=== PATIENT | male | born 1945 | race Caucasian/White ===

== ENCOUNTER → 2022-03-11 | Outpatient (CLI) | payer MEDICARE, BC | END | disposition home or self-care (01) | LOC: RAH 10:42 | PROVIDERS: ATTEND Physician Assistant Medical | DX: M47.816 Spondylosis without myelopathy or radiculopathy, lumbar region (principal); M54.50 Low back pain, unspecified; M48.061 Spinal stenosis, lumbar region without neurogenic claudication | CPT/HCPCS: 72148 ==

== ENCOUNTER → 2022-05-06 | Outpatient (CLI) | payer MEDICARE, BC | END | disposition home or self-care (01) | LOC: RAH 13:23 | PROVIDERS: ATTEND Internal Medicine Cardiovascular Disease | DX: I51.7 Cardiomegaly (principal); R94.31 Abnormal electrocardiogram [ECG] [EKG] | CPT/HCPCS: 93306 ==

== ENCOUNTER → 2022-05-10 | Outpatient (CLI) | payer MEDICARE, BC ==
[~2022-05-10] MED LIST: REGADENOSON 0.4 MG/5 ML PF SYG IVP SCH
== END | disposition home or self-care (01) ==
LOC: SHCH 07:40
PROVIDERS: ATTEND Internal Medicine Cardiovascular Disease
DX: R94.31 Abnormal electrocardiogram [ECG] [EKG] (principal)
CPT/HCPCS: 78452; 96374; 93017; J2785; A9500 ×2

== ENCOUNTER 2022-05-21 14:00 | Observation (INO) | payer MEDICARE ==
[~2022-05-21] VITALS: Ht 170.2 cm; Wt 92.2 kg
[2022-05-21 10:01] LABS: BASOPHILS % (AUTO) 0.6 % (0.0-5.0); EOSINOPHILS % (AUTO) 6.5 % (0.0-8.0); HEMATOCRIT 48.2 % (42-54); LYMPHOCYTES % (AUTO) 19.1 % (21.0-51.0); MEAN CORPUSCULAR HEMOGLOBIN 28.8 pg (27.0-33.0); MEAN CORPUSCULAR HGB CONC 33.2 g/dL (32.0-36.0); MEAN CORPUSCULAR VOLUME 86.8 fL (79-99); MONOCYTES % (AUTO) 10.3 % (3.0-13.0); PLATELET COUNT (AUTO) 246 K/uL (130-400); RED BLOOD CELL COUNT(AUTO) 5.55 MIL/uL (4.50-6.20); RED CELL DISTRIBUTION WIDTH 13.3 % (11.0-15.5); WHITE BLOOD COUNT (AUTO) 6.3 K/uL (4.8-10.8)
[2022-05-21 10:15] LABS: CREATININE 1.7 mg/dL (0.5-1.5); POTASSIUM 4.3 mmol/L (3.5-5.1)
[2022-05-23 09:43] VITALS: BP 172/97
[2022-05-23] MEDS ORDERED: GLIM4TAB36 PO (11:19)
[2022-05-23] MEDS ORDERED: FENO145T26 PO (11:19)
[2022-05-23] MEDS ORDERED: ESOM20CA39 PO (11:19)
[2022-05-23] MEDS ORDERED: DUTA0.5C37 PO (11:19)
[2022-05-23] MEDS ORDERED: WARF-57 PO (11:19)
[2022-05-23] MEDS ORDERED: ASPI-449 PO (11:19)
[2022-05-23] MEDS ORDERED: WARF-67 PO (11:19)
[2022-05-23] MEDS ORDERED: ENOX120D SQ (11:19)
[2022-05-23] MEDS ORDERED: EMPA10TA PO (11:19)
[2022-05-23] MEDS ORDERED: METF-910 PO (11:19)
[2022-05-23] MEDS ORDERED: MELO-108 PO (11:19)
[2022-05-23] MEDS ORDERED: PHARMACY COMMUNICATION MISC SCH (11:30)
[2022-05-24] MEDS ORDERED: BUPIVACAINE/PF 0.5% 10ML VIAL ONE (05:01)
[2022-05-24] MEDS ORDERED: BUPIVACAINE/EPI/PF 0.5% 30ML VIAL IJ ONE (05:01)
[2022-05-24] MEDS ORDERED: CEFAZOLIN SODIUM 1 GM VIAL ONE (05:01)
[2022-05-24] MEDS ORDERED: MORPHINE PF 100MG/10ML AMP IV ONE (05:02)
[2022-05-24] MEDS ORDERED: THROMBIN-JMI 20000 UNIT KIT TP ONE (05:03)
[2022-05-24] MEDS ORDERED: CEFAZOLIN SODIUM 2 GM VIAL ONE (06:14)
[2022-05-24] MEDS ORDERED: 0.9%NACL 1000ML 1,000 ML IV ONE (06:15)
[2022-05-24 06:23] VITALS: BP 192/105
[2022-05-24 06:28] LABS: CREATININE 1.7 mg/dL (0.5-1.5); INR 1.15 (0.85-1.15); POTASSIUM 4.1 mmol/L (3.5-5.1); PROTHROMBIN TIME 12.4 SEC (9.6-11.6)
[2022-05-24 06:29] LABS: PARTIAL THROMBOPLASTIN TIME 35.8 SEC (26.3-35.5)
[2022-05-24] MEDS ORDERED: SUCCINYLCHOLINE CHLORIDE 20 MG/ML 10 ML VIAL ONE (07:29)
[2022-05-24] MEDS ORDERED: GLYCOPYRROLATE 1 MG/5 ML SYRINGE ONE (07:29)
[2022-05-24] MEDS ORDERED: PROPOFOL 10 MG/ML 20ML VIAL IV ONE (07:29)
[2022-05-24] MEDS ORDERED: LIDOCAINE PF 100MG/5ML (2%) SYRINGE 5ML ONE (07:29)
[2022-05-24] MEDS ORDERED: ROCURONIUM 10MG/1ML SYR 10 MG/ML ML ONE (07:29)
[2022-05-24] MEDS ORDERED: FENTANYL CITRATE PF 50 MCG/1 ML 2ML VIAL ONE (07:30)
[2022-05-24] MEDS ORDERED: CEFAZOLIN SODIUM 2 GM VIAL IVPB PRN (08:00)
[2022-05-27] VITALS (20 sets, daily range): BP systolic 115–163; BP diastolic 71–99
[2022-05-27] MEDS ORDERED: BUPIVACAINE/EPI/PF 0.5% 30ML VIAL IJ ONE (08:35)
[2022-05-27] MEDS ORDERED: CEFAZOLIN SODIUM 1 GM VIAL ONE ×2 (08:35→10:05)
[2022-05-27] MEDS ORDERED: THROMBIN-JMI 20000 UNIT KIT TP ONE (08:36)
[2022-05-27] MEDS ORDERED: MORPHINE PF 100MG/10ML AMP IV ONE (08:36)
[2022-05-27] MEDS ORDERED: LACTATED RINGERS 1000ML 1,000 ML IV ONE (10:05)
[2022-05-27] MEDS ORDERED: 0.9%NACL 1000ML 1,000 ML IV ONE (10:31)
[2022-05-27] MEDS ORDERED: PROPOFOL 10 MG/ML 20ML VIAL IV ONE ×2 (11:39→12:58)
[2022-05-27] MEDS ORDERED: ROCURONIUM 10MG/1ML SYR 10 MG/ML ML ONE (11:39)
[2022-05-27] MEDS ORDERED: MIDAZOLAM HCL 1 MG/ML 2ML VIAL ONE (11:39)
[2022-05-27] MEDS ORDERED: FENTANYL CITRATE PF 50 MCG/1 ML 2ML VIAL ONE ×2 (11:41→13:45)
[2022-05-27] MEDS ORDERED: DEXAMETHASONE SOD PHOSPHATE 10MG/ML 1ML VIAL ONE (12:03)
[2022-05-27] MEDS ORDERED: PHENYLEPHRINE HCL 10 MG/ML 1ML VIAL IV ONE (12:05)
[2022-05-27] MEDS ORDERED: GLYCOPYRROLATE 1 MG/5 ML SYRINGE ONE (12:48)
[2022-05-27] MEDS ORDERED: EPHEDRINE SULFATE 50 MG/ML AMPULE ONE (12:50)
[2022-05-27] MEDS ORDERED: ONDANSETRON 4MG INJ ONE (13:28)
[2022-05-27] MEDS ORDERED: NEOSTIGMINE 5MG/5ML SYR IV ONE (13:45)
[2022-05-27] MEDS: LACTATED RINGERS 1000ML 1,000 ML IV SCH (14:00)
[2022-05-27] MEDS: CEFAZOLIN SODIUM 2 GM VIAL IVPB SCH ×2 (14:00→22:01)
[2022-05-27] MEDS ORDERED: MORPHINE 2 MG SYG IVP PRN (14:00)
[2022-05-27] MEDS ORDERED: HYDROCODONE/ACETAMINOPHEN 5/325 MG TAB PO PRN (14:00)
[2022-05-27] MEDS ORDERED: 0.9%NACL 10ML VIAL IVP PRN (14:00)
[2022-05-27] MEDS ORDERED: PROMETHAZINE HCL 25 MG/ML 1ML AMPULE IM PRN (14:00)
[2022-05-27] MEDS: DEXAMETHASONE SOD PHOSPHATE 4 MG/ML 1ML VIAL IVP SCH ×2 (18:03→20:43)
[2022-05-27] MEDS: GLIMEPIRIDE 2 MG TABLET PO SCH (20:43)
[2022-05-27] MEDS ORDERED: EMPAGLIFLOZIN 10MG TABLET PO SCH (21:00)
[2022-05-27] MEDS ORDERED: MELOXICAM 7.5 MG TABLET PO SCH (21:00)
[2022-05-28] VITALS: BP 140/73
[2022-05-28] MEDS: DEXAMETHASONE SOD PHOSPHATE 4 MG/ML 1ML VIAL IVP SCH ×2 (02:06→09:59)
[2022-05-28] MEDS: LACTATED RINGERS 1000ML 1,000 ML IV SCH (03:20)
[2022-05-28 04:00] VITALS: BP 133/80
[2022-05-28] MEDS: CEFAZOLIN SODIUM 2 GM VIAL IVPB SCH (05:21)
[2022-05-28 08:00] VITALS: BP 130/90
[2022-05-28] MEDS ORDERED: FENOFIBRATE NANOCRYSTALLIZED 145 MG TAB PO SCH (09:00)
[2022-05-28] MEDS ORDERED: ENOXAPARIN SODIUM 120 MG/0.8ML SQ SCH (09:00)
[2022-05-28] MEDS ORDERED: PANTOPRAZOLE 40 MG TAB DR PO SCH (09:00)
[2022-05-28] MEDS ORDERED: ASPIRIN 81 MG EC TAB PO SCH (09:00)
[2022-05-28] MEDS: GLIMEPIRIDE 2 MG TABLET PO SCH (09:00)
[2022-05-28] MEDS ORDERED: METFORMIN HCL 500 MG TAB.SR.24H PO SCH (09:00)
[2022-05-28] MEDS ORDERED: DUTASTERIDE 0.5 MG PO SCH (09:00)
== END 2022-05-28 11:55 | disposition home or self-care (01) ==
LOC: EDSTATUS 14:00 → UNDOADMOB 05-24 05:34 → DAHIP 05-24 05:34 → 4BH 05-27 15:10
PROVIDERS: ADMIT Neurological Surgery; ATTEND Neurological Surgery
DX: M48.061 Spinal stenosis, lumbar region without neurogenic claudication (principal); Z20.822 Contact with and (suspected) exposure to COVID-19; E11.9 Type 2 diabetes mellitus without complications; E78.5 Hyperlipidemia, unspecified; D68.2 Hereditary deficiency of other clotting factors; Z90.49 Acquired absence of other specified parts of digestive tract; Z79.899 Other long term (current) drug therapy; Z98.890 Other specified postprocedural states
CPT/HCPCS: 80048 ×2; 85025; 87426; 36415 ×2; 85610; 85730; 82948 ×3; 63047; 63048; 96376 ×2; 96365; 96375; 72020; A6260; A4663 ×2; J0690 ×5; J7030 ×2; J2274 ×2; J3490 ×4; A4215; A4223; A4222; A4221; A4600; A4510; J1100 ×6; G0378 ×21; J7120 ×3; A4344; J3010 ×2; J2710; J2250; J2704 ×2; J2405; J2370; A4649 ×3; J1650; J0330; J2001

== ENCOUNTER → 2023-07-02 | Outpatient (CLI) | payer MEDICARE ==
[~2023-07-02] MED LIST changes: +ASPI-449 PO; +DUTA0.5C37 PO; +EMPA10TA PO; +ENOX120D SQ; +ESOM20CA39 PO; +FENO145T26 PO; +GADOTERATE MEGLUMINE 10 MMOL/20 ML VIAL IV ONE; +GLIM4TAB36 PO; +MELO-108 PO; +METF-910 PO; -REGADENOSON 0.4 MG/5 ML PF SYG IVP SCH; +WARF-57 PO; +WARF-67 PO
== END | disposition home or self-care (01) ==
LOC: RAH 08:45
PROVIDERS: ATTEND Physician Assistant Medical
DX: M47.817 Spondylosis without myelopathy or radiculopathy, lumbosacral region (principal); M51.27 Other intervertebral disc displacement, lumbosacral region; M48.07 Spinal stenosis, lumbosacral region; G57.81 Other specified mononeuropathies of right lower limb; M48.05 Spinal stenosis, thoracolumbar region
CPT/HCPCS: 72158; A9575